=== PATIENT | male | born 1950 | race African-American/Black ===

== ENCOUNTER 2022-08-26 14:22 | Inpatient (IN) | payer MEDICARE ==
[~2022-08-26] VITALS: Ht 162.6 cm; Wt 80.3 kg
[2022-08-26 17:52] LABS: BASOPHILS % 0.7 % (0.0-2.0); EOSINOPHILS % 1.3 % (0.0-5.0); HEMATOCRIT. 45.5 % (42.0-52.0); HEMOGLOBIN. 15.3 g/dL (14.0-18.0); LYMPHOCYTES % 22.3 % (20.0-50.0); MEAN CORPUSCULAR HEMOGLOBIN 30.9 pg (28.0-32.0); MEAN PLATELET VOLUME 7.5 fl (7.4-10.4); MONOCYTES % 11.1 % (2.0-8.0); NEUTROPHILS % 64.6 % (40.0-76.0); PLATELET 372 x1000/uL (130-400); RED BLOOD CELL COUNT 4.95 mill/uL (4.7-6.1); RED CELL DISTRIBUTION WIDTH 14.1 % (11.6-14.6)
[2022-08-26 18:00] LABS: CHLORIDE 105 mEq/L (98-107)
[2022-08-27] MEDS ORDERED: PIPERACILLIN/TAZ 3.375G PREMIX 50 ML IV ONE
[2022-08-27] MEDS ORDERED: VANCOMYCIN 1G PREMIX 200 ML IV ONE
[2022-08-27] MEDS ORDERED: GADOTERATE MEGLUMINE 5 MMOL/10 ML VIAL IV ONE (12:29)
[2022-08-27] MEDS ORDERED: VANCOMYCIN 1G PREMIX 200 ML IV NR (16:31)
[2022-08-27] MEDS ORDERED: ONDANSETRON HCL 4MG/2ML INJ IV PRN ×2 (17:45→21:30)
[2022-08-27] MEDS ORDERED: ACETAMINOPHEN 325MG TABLET PO PRN ×3 (17:45→21:30)
[2022-08-27 20:00] VITALS: BP_SYST 145; BP_SYST 150; BP_DIAS 79; BP_DIAS 86
[2022-08-27] MEDS: AMPICILLIN SOD/SULBACTAM NA 3 G in SODIUM CHLORIDE 0.9% 100 ML IV SCH (21:25)
[2022-08-27] MEDS: SODIUM CHLORIDE 0.9% INJ 3ML FLUSH IVF SCH (21:26)
[2022-08-27] MEDS ORDERED: DIPHENHYDRAMINE 50MG/ML VIAL IV PRN (21:30)
[2022-08-27] MEDS ORDERED: MAGNESIUM/ALUMINUM HYDROXIDE/SIMETHICONE 30ML UDC PO PRN (21:30)
[2022-08-27] MEDS ORDERED: ZOLPIDEM TARTRATE 5MG TABLET PO PRN (21:30)
[2022-08-27] MEDS ORDERED: CLONIDINE 0.1MG TABLET PO PRN (21:30)
[2022-08-28] VITALS: BP 144/78
[2022-08-28] MEDS: AMPICILLIN SOD/SULBACTAM NA 3 G in SODIUM CHLORIDE 0.9% 100 ML IV SCH ×5 (00:33→23:55)
[2022-08-28 04:00] VITALS: BP 127/77
[2022-08-28] MEDS: SODIUM CHLORIDE 0.9% INJ 3ML FLUSH IVF SCH ×3 (05:27→21:10)
[2022-08-28 08:00] VITALS: BP 149/89
[2022-08-28] MEDS: ENOXAPARIN 40MG/0.4ML SYR SUBCUT SCH (08:38)
[2022-08-28] MEDS ORDERED: VANCOMYCIN 750MG PREMIX 150 ML IV SCH (09:00)
[2022-08-28] MEDS: VANCOMYCIN 1G PREMIX 200 ML IV SCH (10:57)
[2022-08-28 12:00] VITALS: BP 124/82
[2022-08-28 16:00] VITALS: BP 136/79
[2022-08-28 20:00] VITALS: BP 145/97
[2022-08-29 00:30] VITALS: BP 154/93
[2022-08-29] MEDS ORDERED: ACETAMINOPHEN 650MG/20.3ML UDC PO PRN (00:47)
[2022-08-29 03:36] LABS: CHLORIDE 104 mEq/L (98-107)
[2022-08-29 04:00] VITALS: BP 126/78
[2022-08-29] MEDS: VANCOMYCIN 1G PREMIX 200 ML IV SCH (04:59)
[2022-08-29] MEDS: SODIUM CHLORIDE 0.9% INJ 3ML FLUSH IVF SCH ×2 (06:27→13:42)
[2022-08-29] MEDS: AMPICILLIN SOD/SULBACTAM NA 3 G in SODIUM CHLORIDE 0.9% 100 ML IV SCH ×2 (06:27→12:00)
[2022-08-29 08:00] VITALS: BP 128/82
[2022-08-29] MEDS: ENOXAPARIN 40MG/0.4ML SYR SUBCUT SCH (09:12)
[2022-08-29] MEDS ORDERED: SULF1TAB48 MT (11:53)
[2022-08-29] MEDS ORDERED: AMOX1TAB16 MT (11:53)
[2022-08-29 12:00] VITALS: BP 133/78
[2022-08-29 15:40] VITALS: BP 133/78
[2022-08-29 16:00] VITALS: BP 147/83
[2022-08-29] MEDS ORDERED: VANCOMYCIN 1G PREMIX 200 ML IV SCH (21:00)
== END 2022-08-29 18:51 | disposition home or self-care (01) | DRG 603 ==
LOC: ER 15:31 → MICUSO 08-27 01:54 → 6EST 08-27 18:18
PROVIDERS: ADMIT Internal Medicine Pulmonary Disease; ATTEND Internal Medicine Pulmonary Disease
DX: L03.115 Cellulitis of right lower limb (principal); Z82.49 Family history of ischemic heart disease and other diseases of the circulatory system
CPT/HCPCS: 36415; 73590; 73700; 73720; 80048; 80053; 80202; 84145; 85025; 99285; A9577; J0295; J1650; J2543; J3370; J7050